=== PATIENT | male | born 1970 | race Caucasian/White ===

== ENCOUNTER 2020-10-08 18:43 | Emergency (ER) | payer OTHER ==
[~2020-10-08] VITALS: Ht 177.8 cm; Wt 111.1 kg
[2020-10-08] MEDS ORDERED: NORVASC10 MG PO (19:01)
[2020-10-08] MEDS ORDERED: COZAAR100 MG PO (19:01)
[2020-10-08] MEDS ORDERED: NAPROXEN375 MG PO (19:02)
[2020-10-08] MEDS ORDERED: AUGMENTIN 875-1 EACH PO (21:12)
== END 2020-10-08 21:36 | disposition home or self-care (01) ==
LOC: ED 18:43
DX: R42 Dizziness and giddiness (principal); I10 Essential (primary) hypertension; Z79.899 Other long term (current) drug therapy
CPT/HCPCS: 70450; 80053; 85025; 96374; 96375; 99284-25; J2405; J2550; J7030

== ENCOUNTER 2021-02-28 09:12 | Emergency (ER) | payer OTHER ==
[~2021-02-28] VITALS: Ht 177.8 cm; Wt 111.1 kg
[~2021-02-28 09:12] MED LIST: AUGMENTIN 875-1 EACH PO; COZAAR100 MG PO; NAPROXEN375 MG PO; NORVASC10 MG PO
[2021-02-28] MEDS ORDERED: K-TAB ER20 MEQ PO (09:23)
[2021-02-28] MEDS ORDERED: FLOMAX0.4 MG PO (09:24)
[2021-02-28] MEDS ORDERED: CHLORTHALIDONE25 MG PO (09:24)
== END 2021-02-28 10:55 | disposition home or self-care (01) ==
LOC: ED 09:12
DX: N13.2 Hydronephrosis with renal and ureteral calculous obstruction (principal); I10 Essential (primary) hypertension; Z79.899 Other long term (current) drug therapy
CPT/HCPCS: 74176; 80053; 85025; 96374; 96375; 99284-25; J1885; J2405; J7030

== ENCOUNTER 2021-04-04 05:30 | Day surgery (SDC) | payer OTHER ==
[~2021-04-04] VITALS: Ht 177.8 cm; Wt 112.3 kg
[~2021-04-04 05:30] MED LIST changes: +CHLORTHALIDONE25 MG PO; +FLOMAX0.4 MG PO; +K-TAB ER20 MEQ PO
--- NOTE | 2021-04-04 08:55 | NUR ---
04/04/21 0855 Marco,Nydia 0841 PT ARRIVED TO PACU ON 10L VIA MASK, PT MOVING IN BED BUT UNABLE TO FOLLOW COMMANDS. VSS. 0853 PT WAKES AND DENIES PAIN AND NAUSEA. PT REORIENTED TO PACU AND EDUCAITON GIVEN ON STENT. O2 REMOVED AND DEEP BREATHING ENCOURAGED. PT EASILY FALLS BACK TO SLEEP.
--- NOTE | 2021-04-04 09:27 | NUR ---
PT IS BACK TO DS FROM PACU. HE IS BACK TO HIS BASELINE. HE VOIDED IN PACU QS PER DR. LEO. WATER ON BEDSIDE TABLE. [employer] AT BEDSIDE. PT WOULD LIKE SOME PUDDING. NO ADDITIONAL NEEDS.
--- NOTE | 2021-04-04 10:41 | NUR ---
PT IS GIVEN VERBAL DC INSTRUCTIONS. HE VERBALIZES UNDERSTANDING AND DOES TEACH BACK ON HOW TO REMOVE HIS STENT ON 04/10/21. REPORT IS CALLED OUT TO THE INFIRMAY TO BRUINING.
--- NOTE | 2021-04-04 10:55 | OR ---
[facility] [address] [place], [place] [address] Signed DATE OF OPERATION: 04/04/2021 SURGEON: Jack Leo MD PREOPERATIVE DIAGNOSIS: A 7 mm left mid ureteral calculus. POSTOPERATIVE DIAGNOSIS: A 7 mm left mid ureteral calculus. NAMES OF PROCEDURES: 1. Diagnostic cystoscopy with left retrograde pyelogram. 2. Left semi-rigid ureteroscopy with laser lithotripsy and basket extraction of stone fragments. 3. Insertion of 6 x 26 cm double-J ureteral stent into the left collecting system. ANESTHESIA: General. ESTIMATED BLOOD LOSS: Minimal. COMPLICATIONS: None. SPECIMEN: Stone fragments sent to the lab for stone analysis. DRAINS: A 6 x 26 cm double-J ureteral stent inserted into the left collecting system. INDICATIONS FOR PROCEDURE: Kishore is a very pleasant 50-year-old gentleman with no previous history of nephrolithiasis, who presented to the emergency department over a month ago with left-sided flank pain and nausea and vomiting. His urinalysis was found to be negative for infection at that time, and his white blood cell count and renal function were within normal limits. He was sent back to [facility] to attempt a trial of passage and was scheduled to see me for evaluation. One month later, he was finally able to come in to be evaluated. He was experiencing intermittent severe left-sided flank pain, but still no fevers, chills, or gross hematuria. After discussion of the risks and benefits of Electronically Signed By: JACK LEO MD 04/04/21 1055 PATIENT NAME: KISHORE JURADO OPERATIVE REPORT DATE OF : 74 REPORT #: [id number] PHYSICIAN: JACK LEO MD PCP: OLGA CONNOR MD REPORT IS CONFIDENTIAL AND NOT TO BE RELEASED WITHOUT AUTHORIZATION [facility] [address], [place] [address] Signed stone extraction, the patient agreed to undergo left ureteroscopic fragmentation, and extraction of his obstructing 7 mm left ureteral calculus. He presents today to undergo the aforementioned procedure. FINDINGS: 1. On cystoscopy, there was no evidence of any suspicious masses, lesions, or stones. Bilateral ureteral orifices are in their normal anatomic location. There is no evidence of any significant prostatic hypertrophy on ureteroscopy. 2. Left retrograde pyelogram was performed which revealed a pretty good-sized filling defect within the left mid ureter just superior to the left pelvic brim. This is consistent with his known 7 mm obstructing calculus. No other stones or filling defects are noted in the left ureter. 3. Left semi-rigid ureteroscopy was performed and the 7 mm stone was fragmented using a holmium laser at 10 and 1 settings. The stone fragmented with some difficulty, however, it did fragment completely and 100% of the stone burden was removed from the patient's left ureter. 4. A 6 x 26 cm double-J ureteral stent was inserted into the left collecting system without difficulty. DESCRIPTION OF PROCEDURE: After informed consent was obtained, the patient was taken back to the operating room. He was transferred from the [facility] to the operating room table, where general anesthesia was induced. He was placed in the dorsal lithotomy position and his genitalia prepped and draped in a standard sterile fashion. Using a 30-degree lens on a 22.5-American introducer, rigid cystoscope was inserted through his urethra and into his bladder under direct visualization. Panendoscopic views of bladder were then obtained. Please see the above findings. Attention was turned to the left ureteral orifice. A left retrograde pyelogram was performed using a cone-tipped catheter. Please see above findings. A safety wire was then placed and then I advanced a semi-rigid ureteroscope through the left ureteral orifice and up into the left ureter. Diagnostic ureteroscopy was then performed. Please see above findings. I located the stone in the mid left ureter and then used a holmium laser to fragment the stone using a 270 micron fiber and holmium laser settings of 10 and 1. The stone fragmented with some difficulty, however, it did fragment completely. I removed one particularly large fragment from the ureter using a ZeroTip basket. The fragment was too large to be removed completely from the ureter, so I did half to release the basket and fragment the stone again to completely remove from the left ureter. I repeated left ureteroscopy and did not appreciate any additional stones in the left ureter. Repeat left retrograde pyelogram was also performed and revealed a patent left ureter with no filling defects. The stone was then extracted from the patient's bladder using a cystoscope and placed in a specimen cup to be sent to the lab for stone analysis. With the ureteroscope still in place, I passed a 0.035 Sensor wire into the left ureter and up into the left kidney. The left Electronically Signed By: JACK LEO MD 04/04/21 1055 PATIENT NAME: KISHORE JURADO OPERATIVE REPORT DATE OF : 74 REPORT #: [id number] PHYSICIAN: JACK LEO MD PCP: OLGA CONNOR MD REPORT IS CONFIDENTIAL AND NOT TO BE RELEASED WITHOUT AUTHORIZATION [address] [address] Signed ureteroscope was then removed from the left collecting system. Placement of the wire into the left kidney was confirmed on fluoroscopy. Over the wire, I passed a 6 x 26 cm double-J ureteral stent into the left collecting system under direct visualization. The stent passed easily and a proximal coil was seen within the left renal pelvis. The patient's bladder was then again drained completely and the cystoscope was then removed from the patient's bladder. There was a string left attached to the stent. The string was attached to the patient's phallus. The procedure was then terminated. The patient tolerated the procedure well without any complication. He will now be transferred to the postanesthesia care unit in stable condition. DISPOSITION: I discussed the results of today's procedure with the patient and notified him that his 7 mm stone was successfully extracted and that he has an indwelling ureteral stent in place that will need to be removed using the string attached on April 10. He will be sent back home to [facility] today once he awakes from general anesthesia. He was given a prescription for oxycodone 5 mg one tablet p.o. q.6 hours p.r.n. pain, dispense #20 along with Levaquin 500 mg one tablet p.o. daily for a total of 7 days. He will be in the [facility] for the next 48 hours to recover from his procedure. He will be scheduled to return to clinic in approximately 6 weeks with urine check to discuss the results of his stone analysis. MD CORNELL Brantley/KIRA /[id number] Copies: ~ Electronically Signed By: JACK LEO MD 07/19/21 1055 PATIENT NAME: ADRIENKISHORE OPERATIVE REPORT DATE OF : 74 REPORT #: [id number] PHYSICIAN: JACK LEO MD PCP: OLGA CONNOR MD REPORT IS CONFIDENTIAL AND NOT TO BE RELEASED WITHOUT AUTHORIZATION
--- NOTE | 2021-04-04 14:47 | NUR ---
PT ALERT, ORIENTED AND ACCOMPANIED BY 2 [employer]. PT VERY COMPLIANT, GAVE ENCOURAGEMENT. PT REQUESTED PRAYER, WILL FOLLOW
== END 2021-04-04 10:35 | disposition home or self-care (01) ==
LOC: DS 05:30 → OPS 05:30 → DS 06:45 → OPS 06:45 → DS 07:00 → OPS 10:35
PROVIDERS: ATTEND Urology
PROC: 0TC78ZZ Extirpation of Matter from Left Ureter, Via Natural or Artificial Opening Endoscopic (ICD-10-PCS; principal; 2021-04-04 06:45)
PROC: 0T778DZ Dilation of Left Ureter with Intraluminal Device, Via Natural or Artificial Opening Endoscopic (ICD-10-PCS; 2021-04-04 06:45)
DX: N20.1 Calculus of ureter (principal); I10 Essential (primary) hypertension; Z20.822 Contact with and (suspected) exposure to COVID-19
CPT/HCPCS: 00918; 74420; C1769; C2617; J0690; J1100; J2250; J3010; Q9967; U0003